=== PATIENT | male | born 1990 | race Caucasian/White ===

== ENCOUNTER 2023-10-20 19:24 | Emergency (ER) | payer OTHER ==
[~2023-10-20] VITALS: Ht 185.4 cm; Wt 112.9 kg
[2023-10-20 22:34] VITALS: BP 118/84; PULSE 74; RESP 15; TEMP 98.3; O2SAT 100
== END 2023-10-20 22:30 | disposition home or self-care (01) ==
LOC: FSED 19:33
DX: S06.0X0A Concussion without loss of consciousness, initial encounter (principal); W01.198A Fall on same level from slipping, tripping and stumbling with subsequent striking against other object, initial encounter; Y99.0 Civilian activity done for income or pay
CPT/HCPCS: 70450; 76801; 99283